=== PATIENT | female | born 1980 | race Caucasian/White ===

== ENCOUNTER 2016-09-05 18:59 | Emergency (ER) | payer MEDICAID, OTHER ==
[~2016-09-05] VITALS: Ht 157.5 cm; Wt 78.0 kg
[~2016-09-05 18:59] MED LIST: CALC-649 PO; FERR27TA PO; MOTRIN; PREN1TAB49 PO; PSYL3.4P5 PO
[2016-09-05 19:11] VITALS: Ht 157.5 cm; Wt 78.0 kg
[2016-09-05] MEDS ORDERED: SOD CHLORIDE 0.9% 1,000 ML IV STA (22:16)
[2016-09-05] MEDS ORDERED: LORAZEPAM 2 MG INJ IV ONE (22:30)
[2016-09-05 22:32] LABS: ADD SCAN DIFF NO
[2016-09-05 22:33] LABS: BASOPHIL # 0.1 10^3/ul (0.0-0.1); BASOPHILS % 0.5 % (0.0-2.0); EOSINOPHILS # 0.2 10^3/ul (0.0-0.5); EOSINOPHILS % 1.8 % (0.0-7.0); HEMATOCRIT 38.3 % (37.0-47.0); HEMOGLOBIN 12.6 g/dl (12.0-16.0); LYMPHOCYTES # 4.1 10^3/ul (0.8-2.9); LYMPHOCYTES % 37.9 % (15.0-51.0); MEAN CORPUSCULAR HEMOGLOBIN 26.6 pg (29.0-33.0); MEAN CORPUSCULAR HGB CONC 32.9 g/dl (32.0-37.0); MEAN PLATELET VOLUME 10.8 fl (7.4-10.4); MONOCYTE # 0.5 10^3/ul (0.3-0.9); MONOCYTES % 4.2 % (0.0-11.0); PLATELET COUNT 310 10^3/UL (140-415); RED BLOOD COUNT 4.73 10^6/ul (4.20-5.40); RED CELL DISTRIBUTION WIDTH 13.8 % (11.5-14.5); WHITE BLOOD COUNT 10.8 10^3/ul (4.8-10.8)
[2016-09-05 22:58] LABS: ALANINE AMINOTRANSFERASE 27 IU/L (13-69); ALBUMIN 4.4 g/dl (3.3-4.9); ALBUMIN/GLOBULIN RATIO 1.04; ALKALINE PHOSPHATASE 86 IU/L (42-121); ANION GAP 13 (8-16); ASPARTATE AMINO TRANSFERASE 25 IU/L (15-46); BILIRUBIN,INDIRECT 0.3 mg/dl (0-1.1); BILIRUBIN,TOTAL 0.3 mg/dl (0.2-1.3); BLOOD UREA NITROGEN 9 mg/dl (7-20); CALCIUM 9.2 mg/dl (8.4-10.2); CARBON DIOXIDE 26 mmol/L (21-31); CHLORIDE 104 mmol/L (97-110); CREATININE 0.64 mg/dl (0.44-1.00); GLUCOSE 93 mg/dl (70-220); POTASSIUM 3.9 mmol/L (3.5-5.1); SODIUM 139 mmol/L (135-144); TOTAL PROTEIN 8.6 g/dl (6.1-8.1)
[2016-09-05 23:04] LABS: INR 0.94; PARTIAL THROMBOPLASTIN TIME 31.7 Sec (25.0-35.0); PROTIME 12.6 Sec (12.2-14.2)
[2016-09-05 23:06] LABS: B-TYPE NATRIURETIC PEPTIDE 48 PG/ML (0-125)
--- NOTE | 2016-09-05 23:08 | RADRPT ---
PROCEDURE: XR Chest. CLINICAL INDICATION: Chest pain. TECHNIQUE: Single frontal view. COMPARISON: 04/23/2014. FINDINGS: The lungs are clear. The heart size is normal. There is no pleural effusion. There is no pneumothorax. IMPRESSION: 1. Normal chest radiograph. 2. No change from 04/23/2014. RPTAT: QQ .Timo Whitehead MD, MD Date Time Electronically viewed and signed by .Timo Whitehead MD, MD on 09/05/2016 23:08 .R/
[2016-09-05 23:12] LABS: TROPONIN-I < 0.012 ng/ml (0.00-0.12)
[2016-09-06] MEDS ORDERED: LORA1TAB PO (00:05)
--- NOTE | 2016-09-06 00:05 | ERD ---
ER Documentation Chief Complaint Date/Time DATE: 09/06/16 TIME: 00:04 Chief Complaint Lt arm/face numbness, +CP "i feel like im in the clouds" HPI This is a 36-year-old female with arm face numbness and chest pressure. She feels like she is in the clouds. Patient section under a lot of stress lately. Chest pain was electric like and radiated to both fingertips causing numbness to moderate fingertips and perioral numbness along with dry mouth. Denies any fevers or chills. Denies any other current complaints ROS All systems reviewed and are negative except as per history of present illness. Medications Home Meds Discontinued Reported Medications Calcium Carbonate (Calcium) 1 Tab Tablet, 1 TAB PO DAILY 09/14/12 Ferrous Sulfate (Iron) 1 Tab Tablet, 1 TAB PO DAILY 09/14/12 Vits W-Ca,Fe,Fa(<1MG) () 1 Tab Tablet, 1 TAB PO DAILY 09/14/12 [None] No Conflict Check 07/29/10 [Motrin] No Conflict Check 04/30/10 Discontinued Scripts Psyllium Husk-Aspartame (Metamucil Fiber Singles Packet) 3.4 Gm Powd.pack, 3.4 GM PO QHS for 7 Days, PACKET Prov:EDA BARRETT Abby 01/14/16 Allergies Allergies: Coded Allergies: No Known Drug Allergy (Verified Allergy, Mild, 09/05/16) PMhx/Soc History of Surgery: Yes (, Kidney stone removal, Eye surgery) Anesthesia Reaction: No Hx Neurological Disorder: No Hx Respiratory Disorders: No Hx Cardiac Disorders: No Hx Psychiatric Problems: No Hx Miscellaneous Medical Probl: No Hx Alcohol Use: No Hx Substance Use: No Hx Tobacco Use: No Smoking Status: Never smoker Physical Exam Vitals Vital Signs Date Time Temp Pulse Resp B/P Pulse Ox O2 Delivery O2 Flow Rate FiO2 09/05/16 22:40 Nasal Cannula 3 09/05/16 22:40 68 18 120/79 100 Room Air 09/05/16 19:11 98.1 78 20 136/87 100 Physical Exam Const: [] Head: Atraumatic Eyes: Normal Conjunctiva ENT: Normal External Ears, Nose and Mouth. Neck: Full range of motion..~ No meningismus. Resp: Clear to auscultation bilaterally Cardio: Regular rate and rhythm, no murmurs Abd: Soft, non tender, non distended. Normal bowel sounds Skin: No petechiae or rashes Back: No midline or flank tenderness Ext: No cyanosis, or edema Neur: Awake and alert Psych: Normal Mood and Affect Result Diagram: 09/05/16222409/05/162224 Results 24 hrs Laboratory Tests Test 09/05/16 22:25 White Blood Count 10.810^3/ul Red Blood Count 4.7310^6/ul Hemoglobin 12.6g/dl Hematocrit 38.3% Mean Corpuscular Volume 81.0fl Mean Corpuscular Hemoglobin 26.6pg Mean Corpuscular Hemoglobin Concent 32.9g/dl Red Cell Distribution Width 13.8% Platelet Count 44367^3/UL Mean Platelet Volume 10.8fl Neutrophils % 55.0% Lymphocytes % 37.9% Monocytes % 4.2% Eosinophils % 1.8% Basophils % 0.5% Nucleated Red Blood Cells % 0.0/100WBC Neutrophils # 6.010^3/ul Lymphocytes # 4.110^3/ul Monocytes # 0.510^3/ul Eosinophils # 0.210^3/ul Basophils # 0.110^3/ul Nucleated Red Blood Cells # 0.010^3/ul Prothrombin Time 12.6Sec Prothrombin Time Ratio 1.0 INR International Normalized Ratio 0.94 Activated Partial Thromboplast Time 31.7Sec Sodium Level 139mmol/L Potassium Level 3.9mmol/L Chloride Level 104mmol/L Carbon Dioxide Level 26mmol/L Anion Gap 13 Blood Urea Nitrogen 9mg/dl Creatinine 0.64mg/dl Glucose Level 93mg/dl Calcium Level 9.2mg/dl Total Bilirubin 0.3mg/dl Direct Bilirubin 0.00mg/dl Indirect Bilirubin 0.3mg/dl Aspartate Amino Transf (AST/SGOT) 25IU/L Alanine Aminotransferase (ALT/SGPT) 27IU/L Alkaline Phosphatase 86IU/L Troponin I < 0.012ng/ml B-Type Natriuretic Peptide 48PG/ML Total Protein 8.6g/dl Albumin 4.4g/dl Globulin 4.20g/dl Albumin/Globulin Ratio 1.04 Current Medications Medications (Trade) Dose Ordered Sig/Moni Route PRN Reason Start Time Stop Time Status Last Admin Dose Admin Sodium Chloride (NS) 1,000 ml @ 1,000 mls/hr Q1H STAT IV 09/05/16 22:16 09/05/16 23:15 DC 09/05/16 22:29 Lorazepam (Ativan) 1 mg ONCE ONCE IV 09/05/16 22:30 09/05/16 22:31 DC 09/05/16 22:29 Procedures/MDM EKG: Rate/Rhythm: Normal Sinus Rhythm QRS, ST, T-waves: No changes consistent w/ acute ischemia Impression: No evidence of ischemia or arrhythmia Chest X-ray 1V Interpreted by me: Soft Tissue: No acute abnormalities Bones: No acute abnormalities Mediastinum/Cardiac Silhouette/Lungs: No acute abnormalities Medical decision-makin-year-old female with chest pain and numbness likely secondary to anxiety. Feels better post Ativan. She has been hydrated. She will be discharged home. Follow-up with PCP. Return for worsening symptoms. Departure Diagnosis: Primary Impression: Numbness Condition: Stable WILBUR ADAMS Sep 06, 2016 00:05
[2016-09-06 00:10] LABS: ADD UMIC YES; URINE BILIRUBIN (Dip) NEGATIVE (NEGATIVE); URINE BLOOD (Dip) 1+ (NEGATIVE); URINE COLOR LT. YELLOW (YELLOW); URINE GLUCOSE (Dip) NEGATIVE (NEGATIVE); URINE KETONES (Dip) NEGATIVE (NEGATIVE); URINE LEUKOCYTE ESTERASE (Dip) NEGATIVE (NEGATIVE); URINE NITRITE (Dip) NEGATIVE (NEGATIVE); URINE TOTAL PROTEIN (Dip) NEGATIVE (NEGATIVE); URINE UROBILINOGEN (Dip) 0.2 E.U./dL (0.1-1.0)
[2016-09-06 00:37] LABS: BACTERIA,URINE FEW; SQUAMOUS EPITHELIAL CELL,UR MANY
[2016-09-06 02:12] VITALS: BP 92/56; PULSE 64; RESP 14; TEMP 98.8
== END 2016-09-06 02:14 | disposition home or self-care (01) ==
LOC: E/R 18:59
DX: R20.0 Anesthesia of skin (principal); R07.89 Other chest pain
CPT/HCPCS: 71010; 80053; 81001; 81003; 83880; 84484; 85025; 85610; 85730; 93005; 96361; 96374; J2060; J7030; Z7502

== ENCOUNTER 2017-01-01 15:53 | Emergency (ER) | payer SELFPAY ==
[~2017-01-01] VITALS: Wt 67.0 kg
[~2017-01-01 15:53] MED LIST changes: -CALC-649 PO; -FERR27TA PO; +LORA1TAB PO; -MOTRIN; -PREN1TAB49 PO; -PSYL3.4P5 PO
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
[2017-01-01] MEDS ORDERED: HYDROCODONE/APAP (5/325) TAB PO ONE (17:00)
--- NOTE | 2017-01-01 17:28 | RADRPT ---
PROCEDURE: CT CERVICAL SPINE WITHOUT CONTRAST CLINICAL INDICATION: [facility] TECHNIQUE: CT scan of the cervical spine was performed. No IV contrast was administered. Coronal and sagittal reformatted images were obtained from the axial source images. Images were reviewed on a high-resolution PACS workstation. Dose report: Total exam DLP: 498 mGy-cm. CDTIvol = 22 mGy. One or more of the following dose reduction techniques were used: Automated exposure control Adjustment of the mA and/or kV according to patient size. Use of iterative reconstruction technique. COMPARISON: None FINDINGS: Vertebral body heights are preserved. There are no acute fractures. There is slight right convex c urvature of the cervical spine. Alignment is otherwise intact. The craniocervical junction and C1-C2 articulation is intact. The prevertebral and paravertebral so ft tissues are unremarkable. Findings at specific disc levels: C2-3: Normal disk height. No central canal or neural foraminal narrowing. Mild to moderate left fac et arthropathy. C3-4: Normal disk height. No central canal or neural foraminal narrowing. C4-5: Normal disk height. No central canal or neural foraminal narrowing. C5-6: Normal disk height. No central canal or neural foraminal narrowing. C6-7: Normal disk height. No central canal or neural foraminal narrowing. C7-T1: Normal disk height. No central canal or neural foraminal narrowing. RPTAT: EE IMPRESSION: 1. No acute fracture or dislocation. 2. Mild to moderate left facet arthropathy at C2-C3. .Jessica Romo MD, Date Time Electronically viewed and signed by .Jessica Romo MD, MD on 01/01/2017 17:33 .T/
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
[2017-01-01] MEDS ORDERED: IBUP-1542 PO (18:24)
[2017-01-01] MEDS ORDERED: ORPH100T PO (18:25)
== END 2017-01-01 19:45 | disposition home or self-care (01) ==
LOC: FTE 15:53
DX: S50.311A Abrasion of right elbow, initial encounter (principal); R07.9 Chest pain, unspecified; R51 Headache; V43.62XA Car passenger injured in collision with other type car in traffic accident, initial encounter
CPT/HCPCS: 70450; 71010; 72072; 72125; 93005

== ENCOUNTER 2017-01-03 14:22 | Emergency (ER) | payer SELFPAY ==
[~2017-01-03] VITALS: Ht 154.9 cm; Wt 74.5 kg
[~2017-01-03 14:22] MED LIST changes: +IBUP-1542 PO; +ORPH100T PO
[2017-01-03 14:26] VITALS: Ht 154.9 cm; Wt 74.5 kg
[2017-01-03] MEDS ORDERED: morphine 10 MG INJ IM ONE (16:00)
[2017-01-03] MEDS ORDERED: ORPH100T PO (18:30)
[2017-01-03] MEDS ORDERED: NAPR-688 PO (18:30)
[2017-01-03] MEDS ORDERED: HYDR-906 PO (18:30)
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
[2017-01-03 20:13] VITALS: BP 120/72; PULSE 68; RESP 18
== END 2017-01-03 20:14 | disposition home or self-care (01) ==
LOC: FTE 14:22
DX: S16.1XXA Strain of muscle, fascia and tendon at neck level, initial encounter (principal); S20.211A Contusion of right front wall of thorax, initial encounter; V89.2XXA Person injured in unspecified motor-vehicle accident, traffic, initial encounter
CPT/HCPCS: 71120; 96372; 99284; J2270